=== PATIENT | male | born 2000 | race Caucasian/White ===

== ENCOUNTER 2021-04-21 05:21 | Emergency (ER) | payer BC, SELFPAY ==
--- NOTE | ~2021-04-21 | CT_ITS ---
EXAMINATION: CT abdomen pelvis wo con DATE: 04/21/2021 06:48 INDICATION: Left-sided flank pain TECHNIQUE: Computed tomography (CT) of the abdomen and pelvis was performed without intravenous contr ast. Automated exposure control and iterative reconstruction technique were employed. The dose-length product was 190.09 mGy-cm. COMPARISON: None FINDINGS: Lung bases are clear. Heart size is normal. No pericardial or pleural effusion. Liver, gallbladder, s pleen, pancreas, bilateral adrenal glands and left kidney are normal. 10 mm and 4 mm nonobstructing s tones in the right kidney. No hydronephrosis or evident stones along the course of ureters. Bowels in cluding the appendix are normal. Bladder is normal. No free intraperitoneal gas or fluid. No patholog ically enlarged abdominal or pelvic lymphadenopathy. Antegrade georgi and subtrochanteric interlocking s crew fixation at the visualized proximal right femur. IMPRESSION: 1. Nonobstructing right nephrolithiasis. No evident left-sided urolithiasis. Reviewed, dictated and finalized at location A.
[2021-04-21 05:30] VITALS: BP 148/81; PULSE 77; RESP 16; TEMP 37.3; O2SAT 99
[2021-04-21 06:02] LABS: Add Urine Microscopic? YES; Appearance Urine Cloudy (Clear); Basophils Absolute Auto 0.1 K/mm3 (0.0-0.1); Basophils Percent Auto 1.2 % (0.2-1.2); Bilirubin Urine Negative (Negative); Blood Urine 3+ (Negative); Eosinophils Absolute Auto 0.2 K/mm3 (0-0.3); Eosinophils Percent Auto 2.5 % (0-4.4); Glucose Urine UA Negative (Negative); Hematocrit 48.7 % (42.0-52.0); Hemoglobin 16.2 g/dL (14.0-18.0); Immature Granulocyte Absolute 0.01 K/mm3 (0.00-0.031); Immature Granulocyte Percent A 0.1 % (0-0.5); Ketones Urine Negative (Negative); Leukocyte Esterase Ur Negative LEU/UL (Negative); Lymphocytes Absolute Auto 2.34 K/mm3 (0.9-3.2); Lymphocytes Percent Auto 33.8 % (18.3-44.2); Mean Corpuscular HGB Conc 33.3 g/dl (32-36); Mean Corpuscular Hemoglobin 29.6 pg (26-34); Mean Platelet Volume 10.2 fl (7.4-10.4); Monocytes Absolute Auto 0.5 K/mm3 (0.1-0.6); Monocytes Percent Auto 7.6 % (2.6-8.5); Mucus Urine Few /lpf; Neutrophils Absolute Auto 3.8 K/mm3 (1.3-6.7); Neutrophils Percent Auto 54.8 % (45.5-73.1); Nitrate Urine Negative (Negative); Platelet Count Result 240 k/mm3 (150-375); Protein Urine 2+ mg/dL (Negative); RBC Urine >75 /hpf (0-2); Red Blood Count 5.47 M/mm3 (4.6-6.20); Specific Grav Ur 1.021 (1.001-1.035); Urobilinogen Urine Negative mg/dL (<2.0); White Blood Count 6.9 K/mm3 (4.5-10.0)
[2021-04-21 06:04] LABS: Color Urine Dark Red (Yellow)
[2021-04-21 06:34] LABS: Anion Gap 12 mmol/L (8-16); Blood Urea Nitrogen 11 mg/dL (9-20); Calcium 9.4 mg/dL (8.4-10.2); Carbon Dioxide 29 mmol/L (22-30); Chloride 100 mmol/L (98-107); Estimated CRCL calculation 108 ml/min; Estimated Glomerular Filt Rate > 60; Glucose 113 mg/dL (65-110); Potassium 4.1 mmol/L (3.4-5.0); Sodium 141 mmol/L (137-145)
[2021-04-21] MEDS: SODIUM CHLORIDE 0.9% IV 1,000 ML 999 ML IV CONT (06:38)
[2021-04-21] MEDS: ONDANSETRON INJ 4 MG/2 ML VIAL IV PUSH (06:38)
[2021-04-21] MEDS: KETOROLAC 30 MG/ML VIAL (*BKC) IV PUSH (06:38)
--- NOTE | 2021-04-21 08:07 | ED.MALEGU ---
HPI - Male Genitourinary General Chief complaint: Urogenital-Male Stated complaint: hematuria Time Seen by Provider: 04/21/21 06:09 Source: patient Mode of arrival: ambulatory Limitations: no limitations History of Present Illness HPI Narrative: 20-year-old male Patient has a history of flank pain and hematuria related to kidney stones Here because of hematuria and a little bit of left-sided flank pain which began overnight Effectively pain has resolved at this time He does not have nausea or vomiting, and does not have a fever Related Data Allergies Allergy/AdvReac Type Severity Reaction Status Date / Time No Known Allergies Allergy Verified 04/21/21 05:33 Review of Systems Review of Systems: All systems reviewed & are unremarkable except as noted in HPI and below Constitutional: Constitutional: Reports no additional constitutional complaints, Denies chills, Denies fever(s) and Denies headache(s) ENT: Denies headache(s) Cardiovascular: Cardiovascular: Denies chest pain and Denies dyspnea Respiratory: Respiratory: Denies cough and Denies dyspnea Gastrointestinal: Gastrointestinal: Denies abdominal pain, Denies constipation, Denies diarrhea and Denies vomiting Genitourinary: Genitourinary: Reports hematuria, Denies dysuria and Reports urinary frequency Musculoskeletal: Musculoskeletal: Denies deformity, Denies arthralgias, Denies joint swelling and Denies numbness Integumentary/Breasts: Skin/Breast: Denies rash and Denies wounds Neurologic: Denies headache(s), Denies focal weakness and Denies numbness Hematologic/Lymphatic: Hematologic/Lymphatic: Denies easy bleeding and Denies easy bruising Allergic/Immunologic: Allergic/Immunologic: Reports no additional allergic/immunologic complaints Exam Const: General: cooperative, no acute distress and alert Orientation/consciousness: patient oriented x3 (alert) HENMT: Head: normal to inspection, normocephalic and atraumatic Ears: external ears normal General nose exam: no epistaxis Eyes: Conjunctivae: conjunctivae normal EOM: EOMs intact bilaterally Neck: Neck: supple and no JVD Resp: Effort & Inspection: normal respiratory effort and not labored Auscultation: other (BS =) GI: Inspection: non-distended GI Palp: Yes Soft to palpation, No Tenderness to palpation present (GI) and No Guarding due to palpation present (GI) : General: Yes no CVA tenderness Skin: General skin exam: normal color and no rashes or lesions noted Neuro: General: patient oriented x3 (alert) Speech: normal speech Psych: Affect: normal affect Course Vital Signs Vital signs: Vital Signs Temperature 37.3 C 04/21/21 05:30 Pulse Rate 77 04/21/21 05:30 Respiratory Rate 16 04/21/21 05:30 Blood Pressure 148/81 H 04/21/21 05:30 Pulse Oximetry 99 04/21/21 05:30 Temperature 37.3 C 04/21/21 05:30 Pulse Rate 77 04/21/21 05:30 Respiratory Rate 16 04/21/21 05:30 Blood Pressure 148/81 H 04/21/21 05:30 Pulse Oximetry 99 04/21/21 05:30 MDM - Male Genitourinary Differential Diagnosis Differential diagnosis: Likely urinary tract infection and other (Kidney stone, polyp) Medical Records Attestation: I reviewed the patient's medical records. Lab Data Attestation: I reviewed the patient's lab results. Result diagrams: 04/21/21 05:46 04/21/21 05:46 Labs: Lab Results 04/21/21 04/21/21 04/21/21 Range/Units 05:46 05:46 05:46 WBC 6.9 (4.5-10.0) K/mm3 RBC 5.47 (4.6-6.20) M/mm3 Hgb 16.2 (14.0-18.0) g/dL Hct 48.7 (42.0-52.0) % MCV 89.0 (80-100) fl MCH 29.6 (26-34) pg MCHC 33.3 (32-36) g/dl RDW 12.0 (11.5-14.5) % Plt Count 240 (150-375) k/mm3 MPV 10.2 (7.4-10.4) fl Immature Gran % (Auto) 0.1 (0-0.5) % Neut % (Auto) 54.8 (45.5-73.1) % Lymph % (Auto) 33.8 (18.3-44.2) % [place] % (Auto) 7.6 (2.6-8.5) % Eos % (Auto) 2.5 (0-4.4) % Baso % (Auto) 1.2
== END 2021-04-21 08:39 | disposition home or self-care (01) ==
PROVIDERS: Emergency Medicine; Emergency Provider Emergency Medicine
DX: N20.0 Calculus of kidney (principal); R31.9 Hematuria, unspecified
CPT/HCPCS: 36415; 74176; 80048; 81001; 85025; 96361; 96374; 96375; 99284; J1885; J2405; J7030

== ENCOUNTER 2021-04-29 15:10 | Emergency (ER) | payer BC, SELFPAY ==
[2021-04-29 15:14] VITALS: BP 123/74; PULSE 90; RESP 16; TEMP 36.4; O2SAT 100
[2021-04-29 15:23] VITALS: BP 130/76; PULSE 80; RESP 20; TEMP 36.4; O2SAT 100
--- NOTE | 2021-04-29 15:37 | ED.GENADULT ---
HPI - General Adult General Chief complaint: Urogenital-Male Stated complaint: urinary complaint Time Seen by Provider: 04/29/21 15:35 History of Present Illness HPI narrative: Patient is a 20-year-old male with history of kidney stones who comes into the ED today with concerns for hematuria. Patient reports that he was seen here a little over a week ago for hematuria and some flank pain and abdominal pains. Was discharged with an antibiotic that helped slightly but the hematuria returned a couple days ago and earlier he had some pain in his back and into his testicle that he threw up prompting him to return to the ED. Currently he does not have any pain and is feeling fine. He says the pain earlier today felt like kidney pain . he is followed by a urologist in [place]. He denies any other urinary symptoms. He denies any testicular edema or rash. No other symptoms or concerns. Related Data Allergies Allergy/AdvReac Type Severity Reaction Status Date / Time No Known Allergies Allergy Verified 04/29/21 15:28 Review of Systems Review of Systems: See HPI Constitutional: Constitutional: Reports as per HPI, Denies fever(s), Denies night sweats and Denies weakness Cardiovascular: Cardiovascular: Denies chest pain, Denies edema, Denies leg edema, Denies dyspnea and Denies orthopnea Respiratory: Respiratory: Denies cough and Denies dyspnea Gastrointestinal: Gastrointestinal: Denies abdominal pain, Denies constipation, Denies diarrhea and Reports vomiting Genitourinary: Genitourinary: Reports as per HPI and Denies dysuria Musculoskeletal: Musculoskeletal: Denies abnormal gait, Denies back pain, Denies numbness and Denies tingling Neurologic: Denies Abnormal speech present, Denies abnormal gait, Denies numbness, Denies tingling and Denies weakness Psychiatric: Psychiatric: Denies homicidal ideation and Denies suicidal ideation Exam Narrative: Pleasant, well-appearing, no distress. Laying comfortably in bed. Const: General: cooperative, healthy appearing, comfortable, no acute distress, well developed, alert, awake and Physically active Orientation/consciousness: patient oriented x3 HENMT: Head: normal to inspection, normocephalic and atraumatic Ears: external ears normal General nose exam: Normal external nose present Eyes: Pupils: Equal, round and reactive pupils present EOM: EOMs intact bilaterally Neck: Neck: normal visual inspection Chest: Chest palpation & inspection: normal inspection of the chest and no tenderness Resp: Effort & Inspection: normal respiratory effort and able to speak in complete sentences Auscultation: clear to auscultation bilaterally Cardio: Rate: regular rate Rhythm: regular rhythm GI: Inspection: normal to inspection GI Palp: No abdominal tenderness and Yes Other GI palpation findings present (No pain with deep palpation.) : General: Yes no CVA tenderness Other: Deferred per patient's request Back/Spine/Pelvis: Back: no CVA tenderness Other: He has some mild numbness over his lower thoracic and lumbar spinous processes. However there is no surrounding tenderness to palpation. There is no CVA tenderness. Full range of motion. Normal gait. Skin: General skin exam: normal color and no rashes or lesions noted Lesions: no lesions Neuro: General: patient oriented x3, no focal motor deficits and CN's II-XI intact bilaterally Cranial nerves: Yes Equal, round and reactive pupils present Speech: No Abnormal speech present Extrem: General: normal to inspection and full ROM Psych: Appearance: grossly normal and well kempt Mental Status: mental status grossly normal Speech and movement: Normal speech and movement present Affect: normal affect Thought process: Normal thought process present Course Vital Signs Vital signs: Vital Signs Temperature 36.4 C L 04/29/21 15:14 Pulse Rate 90 04/29/21 15:14 Respiratory Rate 16 04/29/21 15:14 Blood Pressure 123/74 04/29/21
[2021-04-29 15:58] LABS: Basophils Absolute Auto 0.1 K/mm3 (0.0-0.1); Basophils Percent Auto 1.2 % (0.2-1.2); Eosinophils Absolute Auto 0.2 K/mm3 (0-0.3); Eosinophils Percent Auto 4.9 % (0-4.4); Hematocrit 47.9 % (42.0-52.0); Hemoglobin 16.6 g/dL (14.0-18.0); Immature Granulocyte Absolute 0.01 K/mm3 (0.00-0.031); Immature Granulocyte Percent A 0.2 % (0-0.5); Lymphocytes Absolute Auto 1.24 K/mm3 (0.9-3.2); Lymphocytes Percent Auto 30.2 % (18.3-44.2); Mean Corpuscular HGB Conc 34.7 g/dl (32-36); Mean Corpuscular Hemoglobin 29.9 pg (26-34); Mean Corpuscular Volume 86.2 fl (80-100); Mean Platelet Volume 9.8 fl (7.4-10.4); Monocytes Absolute Auto 0.3 K/mm3 (0.1-0.6); Monocytes Percent Auto 6.8 % (2.6-8.5); Neutrophils Absolute Auto 2.3 K/mm3 (1.3-6.7); Neutrophils Percent Auto 56.7 % (45.5-73.1); Platelet Count Result 241 k/mm3 (150-375); Red Blood Count 5.56 M/mm3 (4.6-6.20); Red Cell Distribution Width 11.9 % (11.5-14.5); White Blood Count 4.1 K/mm3 (4.5-10.0)
[2021-04-29 16:19] LABS: Alanine Aminotransferase 29 U/L (4-50); Albumin Level 4.8 g/dL (3.5-5.1); Alkaline Phosphatase 59 U/L (38-126); Anion Gap 9 mmol/L (8-16); Aspartate Amino Transferase 30 U/L (17-59); Bilirubin,Total 0.7 mg/dL (0.2-1.3); Blood Urea Nitrogen 7 mg/dL (9-20); Calcium 9.6 mg/dL (8.4-10.2); Carbon Dioxide 28 mmol/L (22-30); Chloride 100 mmol/L (98-107); Estimated CRCL calculation 107 ml/min; Estimated Glomerular Filt Rate > 60; Glucose 98 mg/dL (65-110); Potassium 4.3 mmol/L (3.4-5.0); Sodium 137 mmol/L (137-145)
[2021-04-29 16:23] LABS: Add Urine Microscopic? YES; Appearance Urine Cloudy (Clear); Bilirubin Urine Negative (Negative); Blood Urine 3+ (Negative); Calcium Oxalate Crystals Urine Present /hpf; Color Urine Amber (Yellow); Glucose Urine UA Negative (Negative); Ketones Urine Negative (Negative); Leukocyte Esterase Ur Negative LEU/UL (Negative); Mucus Urine Heavy /lpf; Nitrate Urine Negative (Negative); Protein Urine 2+ mg/dL (Negative); RBC Urine >75 /hpf (0-2); Specific Grav Ur 1.025 (1.001-1.035); Urobilinogen Urine Negative mg/dL (<2.0); WBC Urine 0-3 /hpf
== END 2021-04-29 17:54 | disposition home or self-care (01) ==
PROVIDERS: Emergency Medicine; Emergency Provider Emergency Medicine
DX: R31.9 Hematuria, unspecified (principal)
CPT/HCPCS: 36415; 80053; 81001; 85025; 99283

== ENCOUNTER 2021-07-02 16:56 | Emergency (ER) | payer BC, SELFPAY ==
[2021-07-02 17:27] VITALS: BP 142/82; PULSE 70; RESP 18; TEMP 36.8; O2SAT 99
--- NOTE | 2021-07-02 18:21 | PC.NURSE ---
patient states pain is resolved and that he is leaving.
== END 2021-07-03 03:13 | disposition left against medical advice (07) ==
DX: R10.9 Unspecified abdominal pain (principal)
CPT/HCPCS: 99199

== ENCOUNTER 2021-08-06 10:08 | Emergency (ER) | payer BC, SELFPAY ==
--- NOTE | ~2021-08-06 | CT_ITS ---
EXAMINATION: CT abdomen pelvis wo con DATE: 08/06/2021 11:16 INDICATION: Right flank pain TECHNIQUE: Computed tomography (CT) of the abdomen and pelvis was performed without intravenous contr ast. Automated exposure control and iterative reconstruction technique were employed. The dose-length product was 190.50 mGy-cm. COMPARISON: 04/21/2021 FINDINGS: Lung bases are clear. Heart size is normal. No pericardial or pleural effusion. Liver, gallbladder, s pleen, pancreas, bilateral adrenal glands and left kidney are normal. 10 x 5 mm stone at the right ur eteropelvic junction with mild right hydronephrosis. Additional 2 mm stone at an upper pole calyx of the right kidney. Bowels including the appendix are normal. Decompressed bladder is unremarkable. No free intraperitoneal gas or fluid. No pathologically enlarged abdominal or pelvic lymphadenopathy. [place] fabricio are unremarkable. IMPRESSION: 1. Right nephrolithiasis with obstructing 10 x 5 mm stone at the right ureteropelvic junction and mil d right hydronephrosis. Reviewed, dictated and finalized at location A. MILLER IMPRESSION: 1. Right nephrolithiasis with obstructing 10 x 5 mm stone at the right ureterop elvic junction and mild right hydronephrosis.
--- NOTE | ~2021-08-06 | XR_ITS ---
EXAMINATION: XR abdomen/kub 1V DATE: 08/06/2021 13:09 INDICATION: Renal stone TECHNIQUE: A supine view of the abdomen was obtained. COMPARISON: CT dated 08/06/2021 FINDINGS: The 10 mm stone at the right ureteropelvic junction is clearly visible on the plain radiograph projec ting over the right transverse process of L2. No other urolithiasis. Moderate amount of gas and stool scattered throughout the colon. No dilated loops of bowel to suggest obstruction. Incompletely visua lized antegrade intramedullary georgi fixation at the proximal right femur. Unfused L5 spinous process. IMPRESSION: 1. 10 mm stone at the right ureteropelvic junction. Reviewed, dictated and finalized at location A. RVISOR FINAL
[2021-08-06 10:14] VITALS: BP 119/82; PULSE 76; RESP 18; TEMP 36.6; O2SAT 100
[2021-08-06 10:18] VITALS: BP 119/82; PULSE 85; O2SAT 100
--- NOTE | 2021-08-06 11:02 | ED.BACK ---
HPI - Back Pain/Injury General Chief Complaint: Back Pain/Injury Stated Complaint: Right Flank Pain Time Seen by Provider: 08/06/21 10:31 Source: patient History of Present Illness HPI Narrative: 20-year-old male presents today with complaints of right flank pain for the last couple of days. Patient has been using ketorolac p.o. at home without relief. Patient has a history of kidney stones. Patient denies any testicular pain, urinary frequency, or dysuria. Patient has had some nausea and vomiting with the pain. Currently rating pain 7 out of 10. Related Data Allergies Allergy/AdvReac Type Severity Reaction Status Date / Time No Known Allergies Allergy Verified 08/06/21 10:17 Review of Systems Constitutional: Constitutional: Reports as per HPI, Denies chills, Denies fatigue, Denies fever(s) and Denies weakness Cardiovascular: Cardiovascular: Reports no additional cardiovascular complaints Respiratory: Respiratory: Reports no additional respiratory complaints Gastrointestinal: Gastrointestinal: Reports nausea and Reports vomiting Genitourinary: Genitourinary: Reports as per HPI and Denies testicular pain Comments: Right flank pain Musculoskeletal: Musculoskeletal: Reports back pain (Right flank pain) Exam Narrative: GENERAL: Well-appearing, well-nourished, and in no acute distress. HEAD: Normocephalic, atraumatic. EYES: PERRLA and EOMI. NECK: Supple. No adenopathy or masses. No carotid bruits or JVD CHEST: Clear to auscultation. No respiratory distress. No wheezes rales or rhonchi HEART: Regular rate and rhythm. No murmur heard. Normal peripheral pulses. ABDOMEN: Soft, nontender, nondistended, normal active bowel sounds. No CVA tenderness. EXTREMITIES: Normal range of motion. No edema. SKIN: Warm, dry, no rash. NEURO: No focal deficits. Alert and oriented x3. PSYCH: Normal mood and affect. Course Course Emergency Course: Discussed plan with patient that he can be discharged home with pain medications if he can tolerate the pain and plan for lithotripsy as outpatient or if pain is not tolerable a stent can be put in. Patient wants to be discharged home. Mother at bedside. Pain wavering in intensity during stay. Patient wants to try out patient pain medication and follow up with urology. Patient aware to return with any new or worsening symptoms. Vital Signs Vital signs: Vital Signs Temperature 36.6 C 02/19/22 10:14 Pulse Rate 76 08/06/21 10:14 Respiratory Rate 18 08/06/21 10:14 Blood Pressure 119/82 08/06/21 10:14 Pulse Oximetry 100 08/06/21 10:14 Temperature 36.7 C 08/06/21 15:00 Pulse Rate 80 08/06/21 15:00 Respiratory Rate 14 08/06/21 15:00 Blood Pressure 123/88 08/06/21 15:00 Pulse Oximetry 99 08/06/21 15:00 MDM - Back Pain/Injury Differential Diagnosis Differential diagnosis: Likely other (UTI, renal calculus, back strain) Medical Records Attestation: I reviewed the patient's medical records. Lab Data Attestation: I reviewed the patient's lab results. Result diagrams: 08/06/21 11:08 08/06/21 11:08 Labs: Lab Results 08/06/21 08/06/21 08/06/21 Range/Units 11:08 11:08 11:08 WBC 6.5 (4.5-10.0) K/mm3 RBC 4.89 (4.6-6.20) M/mm3 Hgb 14.1 (14.0-18.0) g/dL Hct 41.0 L (42.0-52.0) % MCV 83.8 (80-100) fl MCH 28.8 (26-34) pg MCHC 34.4 (32-36) g/dl RDW 12.0 (11.5-14.5) % Plt Count 177 (150-375) k/mm3 MPV 10.1 (7.4-10.4) fl Immature Gran % (Auto) 0.3 (0-0.5) % Neut % (Auto) 65.6 (45.5-73.1) % Lymph % (Auto) 21.4 (18.3-44.2) % [place] % (Auto) 8.7 H (2.6-8.5) % Eos % (Auto) 3.5 (0-4.4) % Baso % (Auto) 0.5 (0.2-1.2) % Lymph # (Auto) 1.40 (0.9-3.2) K/mm3 [place] # (Auto) 0.6 (0.1-0.6) K/mm3 Eos # (Auto) 0.2 (0-0.3) K/mm3 Baso # (Auto) 0.0 (0.0-0.1) K/mm3 Abs Immat Gran (auto) 0.02 (0.00-0.031) K/mm3 Absolute Neuts (auto) 4.3 (1.3-6
[2021-08-06] MEDS: SODIUM CHLORIDE 0.9% IV 1,000 ML 999 ML IV CONT (11:22)
[2021-08-06] MEDS: MORPHINE SULFATE (*CRX) 2 MG/ML INJ IV PUSH ×2 (11:23→13:10)
[2021-08-06] MEDS: ONDANSETRON INJ 4 MG/2 ML VIAL IV PUSH (11:31)
[2021-08-06] MEDS: ONDANSETRON INJ 4 MG/2 ML VIAL (11:33)
[2021-08-06 11:37] LABS: Basophils Percent Auto 0.5 % (0.2-1.2); Eosinophils Absolute Auto 0.2 K/mm3 (0-0.3); Eosinophils Percent Auto 3.5 % (0-4.4); Hemoglobin 14.1 g/dL (14.0-18.0); Immature Granulocyte Absolute 0.02 K/mm3 (0.00-0.031); Immature Granulocyte Percent A 0.3 % (0-0.5); Lymphocytes Percent Auto 21.4 % (18.3-44.2); Mean Corpuscular HGB Conc 34.4 g/dl (32-36); Mean Corpuscular Hemoglobin 28.8 pg (26-34); Mean Corpuscular Volume 83.8 fl (80-100); Mean Platelet Volume 10.1 fl (7.4-10.4); Monocytes Absolute Auto 0.6 K/mm3 (0.1-0.6); Monocytes Percent Auto 8.7 % (2.6-8.5); Neutrophils Absolute Auto 4.3 K/mm3 (1.3-6.7); Neutrophils Percent Auto 65.6 % (45.5-73.1); Platelet Count Result 177 k/mm3 (150-375); Red Blood Count 4.89 M/mm3 (4.6-6.20); White Blood Count 6.5 K/mm3 (4.5-10.0)
[2021-08-06 11:42] LABS: Add Urine Microscopic? YES; Appearance Urine Clear (Clear); Bilirubin Urine Negative (Negative); Blood Urine 1+ (Negative); Calcium Oxalate Crystals Urine Present /hpf; Color Urine Yellow (Yellow); Glucose Urine UA Negative (Negative); Ketones Urine Trace mg/dL (Negative); Leukocyte Esterase Ur Negative LEU/UL (Negative); Mucus Urine Heavy /lpf; Nitrate Urine Negative (Negative); Protein Urine 1+ mg/dL (Negative); Squamous Epithelial Cell Urine Rare /hpf (Few); Urobilinogen Urine Negative mg/dL (<2.0)
[2021-08-06 12:13] LABS: Alanine Aminotransferase 20 U/L (4-50); Albumin Level 4.2 g/dL (3.5-5.1); Alkaline Phosphatase 52 U/L (38-126); Anion Gap 5 mmol/L (8-16); Aspartate Amino Transferase 27 U/L (17-59); Bilirubin,Total 0.8 mg/dL (0.2-1.3); Blood Urea Nitrogen 15 mg/dL (9-20); Calcium 9.2 mg/dL (8.4-10.2); Carbon Dioxide 32 mmol/L (22-30); Chloride 100 mmol/L (98-107); Estimated CRCL calculation 60 ml/min; Estimated Glomerular Filt Rate > 60; Glucose 91 mg/dL (65-110); Sodium 137 mmol/L (137-145)
[2021-08-06 13:10] VITALS: BP 129/83; PULSE 83; RESP 18; O2SAT 100
[2021-08-06 13:16] VITALS: BP 127/80; PULSE 87; RESP 14; O2SAT 95
[2021-08-06] MEDS: oxyCODONE/ACETAMINOPHEN (*CRX) 5-325 MG TABLET 1 TABLET PO (14:31)
[2021-08-06 15:00] VITALS: BP 123/88; PULSE 80; RESP 14; TEMP 36.7; O2SAT 99
== END 2021-08-06 15:00 | disposition home or self-care (01) ==
PROVIDERS: Emergency Provider Nurse Practitioner Family
DX: N13.2 Hydronephrosis with renal and ureteral calculous obstruction (principal)
CPT/HCPCS: 36415; 74018; 74176; 80053; 81001; 85025; 87086; 96361; 96374; 96375; 96376; 99284; A9270; J2270; J2405; J7030

== ENCOUNTER 2022-09-16 21:24 | Emergency (ER) | payer BC, SELFPAY ==
--- NOTE | ~2022-09-16 | CT_ITS ---
EXAMINATION: CT abdomen pelvis wo con DATE: 09/16/2022 22:56 INDICATION: Left flank pain. Nausea. TECHNIQUE: Computed tomography (CT) of the abdomen and pelvis was performed without intravenous contr ast. Automated exposure control and iterative reconstruction technique were employed. The dose-length product was 188.06 mGy-cm. COMPARISON: CT abdomen and pelvis 08/06/2021 FINDINGS: The visualized portions of the lung bases are clear without pneumonia or pleural effusion. The heart size is normal. No pericardial effusion. The liver, gallbladder, spleen, pancreas, adrenal glands, and left kidney are normal. There is a 4 mm stone in right kidney. There are no dilated loops of bowel. The appendix is normal. There are no pathologically enlarged lymph nodes. There is no free intraperitoneal fluid. There is internal fixation of right femur. IMPRESSION: 1. 4 mm nonobstructing right kidney stone. Reviewed, dictated and finalized at location A.
[2022-09-16 21:31] VITALS: BP 127/81; PULSE 74; RESP 16; TEMP 36.9; O2SAT 100
[2022-09-16 22:15] LABS: Basophils Absolute Auto 0.1 K/mm3 (0.0-0.1); Basophils Percent Auto 1.1 % (0.2-1.2); Eosinophils Absolute Auto 0.1 K/mm3 (0-0.3); Hematocrit 48.9 % (42.0-52.0); Hemoglobin 16.5 g/dL (14.0-18.0); Immature Granulocyte Absolute 0.01 K/mm3 (0.00-0.031); Immature Granulocyte Percent A 0.2 % (0-0.5); Lymphocytes Absolute Auto 1.27 K/mm3 (0.9-3.2); Lymphocytes Percent Auto 28.1 % (18.3-44.2); Mean Corpuscular HGB Conc 33.7 g/dl (32-36); Mean Corpuscular Hemoglobin 28.8 pg (26-34); Mean Corpuscular Volume 85.5 fl (80-100); Mean Platelet Volume 9.4 fl (7.4-10.4); Monocytes Absolute Auto 0.3 K/mm3 (0.1-0.6); Monocytes Percent Auto 7.1 % (2.6-8.5); Neutrophils Absolute Auto 2.8 K/mm3 (1.3-6.7); Neutrophils Percent Auto 61.5 % (45.5-73.1); Platelet Count Result 242 k/mm3 (150-375); Red Blood Count 5.72 M/mm3 (4.6-6.20); White Blood Count 4.5 K/mm3 (4.5-10.0)
[2022-09-16 22:21] LABS: Bacteria Urine None Seen /hpf; Non Pathogenic Casts 0-2; RBC Urine 0-2 /hpf (0-2); Squamous Epithelial Cell Urine None seen /hpf (Few); WBC Urine 0-5 /hpf
[2022-09-16 22:23] LABS: Alanine Aminotransferase 18 U/L (6-50); Albumin Level 4.8 g/dL (3.5-5.1); Alkaline Phosphatase 60 U/L (38-126); Anion Gap 6 mmol/L (8-16); Aspartate Amino Transferase 22 U/L (17-59); Bilirubin,Total 0.9 mg/dL (0.2-1.3); Blood Urea Nitrogen 8 mg/dL (9-20); Carbon Dioxide 31 mmol/L (22-30); Chloride 100 mmol/L (98-107); Estimated CRCL calculation 97 ml/min; Estimated Glomerular Filt Rate > 60; Glucose 109 mg/dL (65-110); Potassium 4.1 mmol/L (3.4-5.0); Sodium 137 mmol/L (137-145)
[2022-09-16 22:28] LABS: Appearance Urine Clear (Clear); Bilirubin Urine Negative (Negative); Blood Urine Negative (Negative); Color Urine Yellow (Yellow); Glucose Urine UA Negative (Negative); Ketones Urine Negative (Negative); Leukocyte Esterase Ur Negative LEU/UL (Negative); Nitrate Urine Negative (Negative); Protein Urine Negative (Negative); pH Urine 7.5 (5.0-9.0)
[2022-09-16 22:29] LABS: Add Urine Microscopic? YES
[2022-09-16 23:43] VITALS: BP 124/72; PULSE 70; RESP 15; TEMP 37.2; O2SAT 98
--- NOTE | 2022-09-16 23:45 | ED.ABDPAIN ---
HPI - Abdominal Pain General Chief Complaint: Abdominal Pain Stated Complaint: left flank pain - hx of kidney stones Time Seen by Provider: 09/16/22 23:32 History of Present Illness HPI narrative: 22 year old male here for evaluation of left flank pain x 1 day. Patient states the pain remains in his left flank and does not radiate, similar to previous episodes of kidney stone. His last kidney stone measured 10 mm and required stenting. He denies any nausea, vomiting, fevers, chills, dysuria, urgency or frequency. He has not taken any medicine for pain and declines any pain meds currently. Related Data Allergies Allergy/AdvReac Type Severity Reaction Status Date / Time No Known Allergies Allergy Verified 09/16/22 21:25 Course Vital Signs Vital signs: Vital Signs Temperature 98.4 F 09/16/22 21:31 Pulse Rate 74 09/16/22 21:31 Respiratory Rate 16 09/16/22 21:31 Blood Pressure 127/81 09/16/22 21:31 Pulse Oximetry 100 09/16/22 21:31 Temperature 99 F 09/16/22 23:43 Pulse Rate 70 09/16/22 23:43 Respiratory Rate 15 09/16/22 23:43 Blood Pressure 124/72 09/16/22 23:43 Pulse Oximetry 98 09/16/22 23:43 MDM - Abdominal Pain MDM Narrative Medical decision making narrative: 22-year-old male with a history of kidney stones here for evaluation of left flank pain x1 day, expresses concern about recurrence of kidney stone. He is nontoxic in appearance, has normal vital signs, no CVA tenderness on exam to suggest pyelo. He is declining any pain medicine here. Urinalysis without evidence of infection or red blood cells. Basic labs are unremarkable. CT abdomen pelvis with evidence of right-sided renal stones but no obstructive uropathy or any stones in the side where he is having pain. Stable for discharge at this time with outpatient follow-up. Patient likely passed a stone on his own earlier today given that he is pain-free at this time. Return precautions were discussed and he voiced understanding. Lab Data 09/16/22 21:55 09/16/22 21:55 Labs: Lab Results 09/16/22 09/16/22 09/16/22 Range/Units 21:55 21:55 21:55 WBC 4.5 (4.5-10.0) K/mm3 RBC 5.72 (4.6-6.20) M/mm3 Hgb 16.5 (14.0-18.0) g/dL Hct 48.9 (42.0-52.0) % MCV 85.5 (80-100) fl MCH 28.8 (26-34) pg MCHC 33.7 (32-36) g/dl RDW 12.0 (11.5-14.5) % Plt Count 242 (150-375) k/mm3 MPV 9.4 (7.4-10.4) fl Immature Gran % (Auto) 0.2 (0-0.5) % Neut % (Auto) 61.5 (45.5-73.1) % Lymph % (Auto) 28.1 (18.3-44.2) % [place] % (Auto) 7.1 (2.6-8.5) % Eos % (Auto) 2.0 (0-4.4) % Baso % (Auto) 1.1 (0.2-1.2) % Lymph # (Auto) 1.27 (0.9-3.2) K/mm3 [place] # (Auto) 0.3 (0.1-0.6) K/mm3 Eos # (Auto) 0.1 (0-0.3) K/mm3 Baso # (Auto) 0.1 (0.0-0.1) K/mm3 Abs Immat Gran (auto) 0.01 (0.00-0.031) K/mm3 Absolute Neuts (auto) 2.8 (1.3-6.7) K/mm3 Absolute Nucleated RBC 0.0 (0.0-0.012) K/mm3 Nucleated RBC % 0.0 (0.0-0.2) % Sodium 137 (137-145) mmol/L Potassium 4.1 (3.4-5.0) mmol/L Chloride 100 (98-107) mmol/L Carbon Dioxide 31 H (22-30) mmol/L Anion Gap 6 L (8-16) mmol/L BUN 8 L D (9-20) mg/dL Creatinine 0.80 (0.7-1.3) mg/dL Estim Creat Clear Calc 97 ml/min Estimated GFR > 60 (59 - ) Glucose 109 (65-110) mg/dL Calcium 9.0 (8.4-10.2) mg/dL Total Bilirubin 0.9 (0.2-1.3) mg/dL AST 22 (17-59) U/L ALT 18 (6-50) U/L Alkaline Phosphatase 60 (38-126) U/L Total Protein 8.0 (6.3-8.2) g/dL Albumin 4.8 (3.5-5.1) g/dL Urine Color Yellow (Yellow) Urine Appearance Clear (Clear) Urine pH 7.5 (5.0-9.0) Ur Specific [place] 1.020 (1.001-1.035) Urine Protein Negative (Negative) mg/dL Urine Glucose (UA) Negative (Negative) mg/dL Urine Ketones Negative (Negative) mg/dL Ur Blood (Man) Negative (Negative) Urine Nitrate Negative
== END 2022-09-17 00:41 | disposition home or self-care (01) ==
PROVIDERS: Emergency Medicine; Emergency Provider Physician Assistant
DX: M54.50 Low back pain, unspecified (principal)
CPT/HCPCS: 36415; 74176; 80053; 81001; 85025; 99284

== ENCOUNTER 2022-12-02 09:39 | Emergency (ER) | payer BC, SELFPAY ==
[2022-12-02] VITALS (14 sets, daily range): BP systolic 134–146; BP diastolic 94–102; PULSE 54–74; RESP 15–18; TEMP 36.8; O2SAT 96–100
--- NOTE | ~2022-12-02 | CT_ITS ---
EXAMINATION: CT abdomen pelvis wo con DATE: 12/02/2022 10:09 INDICATION: Right flank pain, hematuria TECHNIQUE: Computed tomography (CT) of the abdomen and pelvis was performed without intravenous contr ast. Automated exposure control and iterative reconstruction technique were employed. Exam dose: 189 .62 mGy-cm total exam DLP. COMPARISON: September 16, 2022 CT abdomen pelvis FINDINGS: The lung bases are clear. Normal heart size. No pericardial or pleural effusion. The liver, gallbladder, bile ducts, pancreas, pancreatic duct, spleen, and adrenal glands are unremar kable. Normal appearance of the left kidney. No left urinary tract calculus or hydronephrosis is detected. No right renal mass lesion is evident. Approximately 2 x 2.7 mm proximal right ureteral calculus with moderate right hydronephrosis. Approximately 2.7 x 3.5 mm lower pole nonobstructing right renal calculus. The urinary bladder is evacuated. Normal caliber of the abdominal aorta. No intraperitoneal or retroperitoneal or pelvic mass lesion or adenopathy or ascites is noted. No bowel obstruction or intraperitoneal free air. Intramedullary georgi of the right femur. Included skeletal structures are otherwise unremarkable. IMPRESSION: Approximately 2 x 2.7 mm proximal right ureteral calculus with moderate right hydronephr osis Right nephrolithiasis Reviewed, dictated and finalized at [facility]. Reviewed, dictated and finalized at [facility]. IMPRESSION: Approximately 2 x 2.7 mm proximal right ureteral calculus with mod erate right hydronephrosis Right nephrolithiasis
--- NOTE | 2022-12-02 10:11 | ED.ABDPAIN ---
HPI - Abdominal Pain General Chief Complaint: Abdominal Pain Stated Complaint: R sided flank pain Time Seen by Provider: 12/02/22 09:44 History of Present Illness HPI narrative: Patient is a 22-year-old male here for evaluation of right flank pain x12 hours. Patient has a history of kidney stones requiring lithotripsy in the past and his pain today feels similar. He reports red urine but denies any dysuria or frequency. Reports some nausea but no vomiting. No fevers, chills, diarrhea, constipation. Related Data Allergies Allergy/AdvReac Type Severity Reaction Status Date / Time No Known Allergies Allergy Verified 09/16/22 21:25 Review of Systems Review of Systems: Gen: Denies fevers or chills Eyes: Denies eye pain or visual change ENT: Denies congestion Respiratory: Denies shortness of breath or cough CV: Denies chest pain or palpitations GI: Denies abdominal pain nausea, emesis or diarrhea : Reports hematuria Musculoskeletal: Reports flank pain Neuro: Denies numbness, tingling, weakness or focal weakness Skin: Denies rash Except as documented, all other systems reviewed and negative Exam Narrative: APPEARANCE: Well appearing, no pain in distress, well-nourished. Head: Normocephalic and atraumatic. EYES: PERRLA/EOMI, conjunctivae clear NOSE: No nasal drainage EARS: External ear normal in appearance THROAT: Oropharynx is clear. Mucous membranes are moist. NECK: Supple. No adenopathy, no masses. RESPIRATORY: Airway patent, respirations nonlabored. Clear to auscultation bilaterally, no rales, rhonchi, wheezing. CARDIOVASCULAR: Regular rate and rhythm without murmurs, rubs, or gallops. ABDOMINAL: Normoactive bowel sounds. Soft, nontender, nondistended. No rebound tenderness or guarding. MUSCULOSKELETAL: Extremities are warm and well-perfused. Moves all extremities well. No edema. NEURO: Normal speech. No focal neurologic deficits. SKIN: Skin is warm and dry. No rashes. PSYCHIATRIC: Normal affect/mood.. Course Vital Signs Vital signs: Vital Signs Temperature 98.2 F 12/02/22 09:46 Pulse Rate 54 L 12/02/22 09:46 Respiratory Rate 15 12/02/22 09:46 Blood Pressure 134/102 H 12/02/22 09:46 Pulse Oximetry 100 12/02/22 09:46 Oxygen Delivery Room Air 12/02/22 09:46 Temperature 98.2 F 12/02/22 09:46 Pulse Rate 59 L 12/02/22 10:46 Respiratory Rate 16 12/02/22 10:46 Blood Pressure 146/96 H 12/02/22 10:46 Pulse Oximetry 99 12/02/22 10:46 Oxygen Delivery Room Air 12/02/22 09:46 MDM - Abdominal Pain MDM Narrative Medical decision making narrative: 22-year-old male here for evaluation of flank pain, hematuria x12 hours. He is uncomfortable in appearance but nontoxic with normal vital signs, afebrile. CT shows proximal kidney stone on the right measuring 2 x 2.7 mm. Basic labs unremarkable, white count is normal, urine is red, nitrate positive, 2+ leuks 11-20 white blood cells. Spoke with Dr. Bledsoe from urology, patient is not having any dysuria fevers or leukocytosis to suggest this is a true UTI, may be false positive due to presence of red urine. At time of conversation patient was still having pain, Dr. Bledsoe recommends trying Toradol, if pain not controlled he may stay in the ED but if he feels better and wants to go home he may do so. Patient feeling improved after Toradol, agrees with plan for sending home with antibiotics, pain meds and Flomax. Discussed return precautions and he voiced understanding, particularly if patient develops a fever he needs to come back to the ED for admission. Lab Data 12/02/22 10:02 12/02/22 10:02 Labs: Lab Results 12/02/22 Range/Units 10:02 WBC 6.7 (4.5-10.0) K/mm3 RBC 5.84 (4.6-6.20) M/mm3 Hgb 16.9 (14.0-18.0) g/dL Hct 49.1 (42.0-52.0) % MCV 84.1 (80-100) fl MCH 28.9 (26-34) pg MCHC 34.4 (32-36) g/dl RDW 11.9 (11.5-14.5) % Plt Count 281 (150-375) k/mm3 MPV 9.9 (
[2022-12-02] MEDS: ONDANSETRON INJ 4 MG/2 ML VIAL IV PUSH ×2 (10:22→11:18)
[2022-12-02] MEDS: MORPHINE SULFATE (*CRX) 4 MG/ML INJ IV PUSH (10:22)
[2022-12-02 10:23] LABS: Basophils Absolute Auto 0.1 K/mm3 (0.0-0.1); Basophils Percent Auto 0.7 % (0.2-1.2); Eosinophils Absolute Auto 0.2 K/mm3 (0-0.3); Eosinophils Percent Auto 3.1 % (0-4.4); Hematocrit 49.1 % (42.0-52.0); Hemoglobin 16.9 g/dL (14.0-18.0); Immature Granulocyte Absolute 0.01 K/mm3 (0.00-0.031); Immature Granulocyte Percent A 0.1 % (0-0.5); Lymphocytes Percent Auto 38.7 % (18.3-44.2); Mean Corpuscular HGB Conc 34.4 g/dl (32-36); Mean Corpuscular Hemoglobin 28.9 pg (26-34); Mean Corpuscular Volume 84.1 fl (80-100); Mean Platelet Volume 9.9 fl (7.4-10.4); Monocytes Absolute Auto 0.5 K/mm3 (0.1-0.6); Monocytes Percent Auto 7.3 % (2.6-8.5); Neutrophils Absolute Auto 3.4 K/mm3 (1.3-6.7); Neutrophils Percent Auto 50.1 % (45.5-73.1); Platelet Count Result 281 k/mm3 (150-375); Red Blood Count 5.84 M/mm3 (4.6-6.20); Red Cell Distribution Width 11.9 % (11.5-14.5); White Blood Count 6.7 K/mm3 (4.5-10.0)
[2022-12-02] MEDS: SODIUM CHLORIDE 0.9% IV 1,000 ML 999 ML (10:27)
[2022-12-02 10:54] LABS: Alanine Aminotransferase 23 U/L (6-50); Albumin Level 4.9 g/dL (3.5-5.1); Alkaline Phosphatase 62 U/L (38-126); Anion Gap 8 mmol/L (8-16); Aspartate Amino Transferase 30 U/L (17-59); Bilirubin,Total 1.1 mg/dL (0.2-1.3); Blood Urea Nitrogen 10 mg/dL (9-20); Calcium 9.1 mg/dL (8.4-10.2); Carbon Dioxide 27 mmol/L (22-30); Chloride 103 mmol/L (98-107); Estimated CRCL calculation 110 ml/min; Estimated Glomerular Filt Rate > 60; Glucose 103 mg/dL (65-110); Sodium 138 mmol/L (137-145)
[2022-12-02 10:57] LABS: Appearance Urine Turbid (Clear); Bacteria Urine None Seen /hpf; Bilirubin Urine 1+ (Negative); Blood Urine 2+ (Negative); Color Urine Red (Yellow); Glucose Urine UA Negative (Negative); Ketones Urine Negative (Negative); Leukocyte Esterase Ur 2+ LEU/UL (Negative); Need Manual Microscopic Reviewed; Nitrate Urine Positive (Negative); Non Pathogenic Casts 0-2; Protein Urine 2+ mg/dL (Negative); RBC Urine >100 /hpf (0-2); Specific Grav Ur 1.026 (1.001-1.035); Squamous Epithelial Cell Urine None seen /hpf (Few); Urobilinogen Urine 0.2 mg/dL (<2.0)
[2022-12-02 10:58] LABS: Add Urine Microscopic? YES
[2022-12-02] MEDS: HYDROmorphone HCL INJ (*CRX) 1 MG/ML SYR 0.5 MG IV PUSH (11:18)
[2022-12-02] MEDS: KETOROLAC 15 MG/ML VIAL (*BKC) IV PUSH (11:43)
== END 2022-12-02 12:25 | disposition home or self-care (01) ==
PROVIDERS: Emergency Provider Physician Assistant
DX: N13.2 Hydronephrosis with renal and ureteral calculous obstruction (principal); Z87.442 Personal history of urinary calculi
CPT/HCPCS: 36415; 74176; 80053; 81001; 85025; 87086; 87088; 96365; 96375; 96376; 99284; J0696; J1170; J1885; J2270; J2405; J7030